=== PATIENT | male | born 1980 | race Caucasian/White ===

== ENCOUNTER → 2021-08-02 | Outpatient (CLI) | payer BC ==
[~2021-08-02] MED LIST: IOPAMIDOL 370 MG/ML 100 ML INFUS..BTL INJ ONE
== END ==
LOC: CT 16:01
PROVIDERS: ATTEND Family Medicine
DX: K92.1 Melena (principal); R19.8 Other specified symptoms and signs involving the digestive system and abdomen; R10.13 Epigastric pain
CPT/HCPCS: 74177; Q9967

== ENCOUNTER → 2021-10-05 | Day surgery (SDC) | payer BC ==
[~2021-10-05] MED LIST changes: +FENTANYL CITRATE/PF 100MCG/2 ML INJ ONE; +GLYCOPYRROLATE INJ 0.2 MG/ML VIAL IV ONE; +HYOSCYAMINE SULFATE 0.5 MG/ML INJ IV ONE; -IOPAMIDOL 370 MG/ML 100 ML INFUS..BTL INJ ONE; +METOCLOPRAMIDE HCL 10 MG/2ML VIAL ONE; +MIDAZOLAM HCL 2 MG/2 ML VIAL ONE; +PROPOFOL IV EMULSION 10 MG/ML 20 ML VIAL IV ONE; +PROPOFOL IV EMULSION 50 ML IV ONE
[2021-10-05 17:15] VITALS: BP 127/77
== END | disposition home or self-care (01) ==
LOC: OR 14:16
PROVIDERS: ATTEND Internal Medicine Gastroenterology
DX: K29.70 Gastritis, unspecified, without bleeding (principal); K20.90 Esophagitis, unspecified without bleeding; K59.00 Constipation, unspecified; K62.5 Hemorrhage of anus and rectum; K64.8 Other hemorrhoids; Z20.822 Contact with and (suspected) exposure to COVID-19; F17.200 Nicotine dependence, unspecified, uncomplicated
CPT/HCPCS: 0223U; 36415; 43239; 45378; C9113; J1980; J2250; J2704 ×2; J2765; J3010